=== PATIENT | male | born 1965 | race Caucasian/White ===

== ENCOUNTER 2025-07-15 11:21 | Emergency (ER) | payer OTHER ==
[~2025-07-15] VITALS: Ht 165.1 cm; Wt 72.0 kg
[2025-07-15 11:23] VITALS: O2SAT 100
[2025-07-15] MEDS ORDERED: BACLOFEN 20MG TABLET PO ONE (14:15)
[2025-07-15] MEDS: KETOROLAC 30MG/ML VIAL IM ONE ×2 (15:07→19:54)
[2025-07-15] MEDS: LIDOCAINE 5% PATCH TOP STA (15:07)
[2025-07-15] MEDS: BACLOFEN 10MG TABLET PO SCH (15:07)
[2025-07-15 17:35] LABS: BASOPHILS % 1.1 % (0.0-2.0); EOSINOPHILS % 6.1 % (0.0-5.0); HEMATOCRIT. 45.1 % (42.0-52.0); HEMOGLOBIN. 15.4 g/dL (14.0-18.0); LYMPHOCYTES % 17.0 % (20.0-50.0); MEAN PLATELET VOLUME 7.7 fl (7.4-10.4); MONOCYTES % 6.2 % (2.0-8.0); NEUTROPHILS % 69.6 % (40.0-76.0); PLATELET 292 x1000/uL (130-400); RED BLOOD CELL COUNT 5.04 mill/uL (4.7-6.1); RED CELL DISTRIBUTION WIDTH 13.9 % (11.6-14.6)
[2025-07-15 17:47] LABS: CREATININE 0.9 mg/dL (0.6-1.3); UREA NITROGEN BLOOD 8 mg/dL (9-23)
[2025-07-15 17:49] LABS: ASPARTATE AMINOTRANSFERASE 14 IU/L (<34); BILIRUBIN DIRECT 0.2 mg/dL (<=3.0); BILIRUBIN TOTAL 0.8 mg/dL (0.1-1.0); PROTEIN TOTAL 6.7 g/dL (6.0-8.3)
[2025-07-15 19:05] LABS: CLARITY URINE CLEAR (CLEAR); COLOR URINE YELLOW (YELLOW); GLUCOSE URINE 3+ (NEGATIVE); KETONES URINE 1+ (NEGATIVE); LEUKOCYTE ESTERASE URINE NEGATIVE (NEGATIVE); NITRITE URINE NEGATIVE (NEGATIVE); OCCULT BLOOD URINE NEGATIVE (NEGATIVE); PH URINE 6.5 (4.5-8.0); PROTEIN URINE NEGATIVE (NEGATIVE); SPECIFIC GRAVITY URINE 1.035 (1.005-1.030); UROBILINOGEN URINE 0.2 E.U./dL (0.2-1.0)
[2025-07-15 19:24] LABS: RBC URINE NONE SEEN /hpf (0-2); SQUAMOUS EPITHELIAL CELL URINE RARE /lpf (RARE/1+); WBC URINE 0-2 /hpf (0-2)
[2025-07-15 19:25] LABS: BACTERIA URINE TRACE
[2025-07-15] MEDS ORDERED: IBUP-1455 MT (19:36)
[2025-07-15] MEDS ORDERED: LIDO700A30 TP (19:36)
[2025-07-15] MEDS ORDERED: BACL-141 MT (19:36)
[2025-07-15 19:53] VITALS: BP 137/87; PULSE 77; RESP 16; TEMP 36.6; O2SAT 100
== END 2025-07-15 19:54 | disposition home or self-care (01) ==
LOC: ER 11:21
DX: R10.84 Generalized abdominal pain (principal); M54.42 Lumbago with sciatica, left side; E11.65 Type 2 diabetes mellitus with hyperglycemia
CPT/HCPCS: 80076; 80048; 81003; 85025; 36415; 72131; 74176; 96372; 99285; J1885; Z7610